=== PATIENT | male | born 1990 | race Caucasian/White ===

== ENCOUNTER 2021-10-19 13:11 | Emergency (ER) | payer OTHER ==
[2021-10-19] MEDS: Diphtheria,Pertussis(Acell),Tetanus Vaccine 0.5 ML Syringe IM ONE (13:56)
[2021-10-19] MEDS: Lidocaine 1% 5 ML VIAL INJECT ONE (13:57)
== END 2021-10-19 15:00 | disposition home or self-care (01) ==
LOC: MW.ED 13:11
DX: S61.442A Puncture wound with foreign body of left hand, initial encounter (principal); Z23 Encounter for immunization; W22.09XA Striking against other stationary object, initial encounter
CPT/HCPCS: 10120; 73130-26-LT; 73130-LT; 90471; 90715; 99283; 99283-25